=== PATIENT | male | born 1970 | race Caucasian/White ===

== ENCOUNTER 2018-09-21 17:19 | Inpatient (IN) | payer MEDICARE, OTHER ==
[~2018-09-21] VITALS: Ht 175.3 cm; Wt 111.6 kg
[2018-09-21 17:43] LABS: BASOPHILS % (AUTO) 0.5 % (0.0-2.0); HEMATOCRIT 37 % (39-51); HEMOGLOBIN 12.5 g/dL (13.5-17.5); LYMPHOCYTES # (AUTO) 3.1 /CMM (0.8-4.8); LYMPHOCYTES % (AUTO) 40.3 % (20.0-44.0); MEAN CORPUSCULAR HGB CONC 34 g/dl (31.0-36.0); MEAN CORPUSCULAR VOLUME 86 fL (80-96); MONOCYTES # (AUTO) 0.7 /CMM (0.1-1.30); MONOCYTES % (AUTO) 8.7 % (2.0-12.0); NEUTROPHILS # (AUTO) 3.4 /CMM (1.8-8.9); NEUTROPHILS % (AUTO) 45.5 % (43.0-81.0); PLATELET COUNT (AUTO) 288 /CMM (150-450); RED BLOOD CELL COUNT(AUTO) 4.27 MIL/uL (4.5-6.0); WHITE BLOOD COUNT (AUTO) 7.6 K/uL (4.3-11.0)
[2018-09-21] MEDS ORDERED: ONDANSETRON HCL/PF 4 MG/2 ML VIAL ONE (17:50)
[2018-09-21] MEDS ORDERED: OXYC-133 PO (17:51)
[2018-09-21] MEDS ORDERED: METF-440 PO (17:51)
[2018-09-21] MEDS ORDERED: METO25TA3 PO (17:51)
[2018-09-21] MEDS ORDERED: BUPR150T5 PO (17:51)
[2018-09-21] MEDS ORDERED: QUET400T PO (17:51)
--- NOTE | 2018-09-21 17:55 | NUR ---
PT BIBRA 89 C/O NON RADIATING MIDSTERNAL CHEST PAIN, 162 MG ASA AND 3 SPRAYS OF NITRO GIVEN IN THE FIELD. ALERT AND ORIENTED X 4, VERBALLY RESPONSIVE AND ABLE TO MAKE NEEDS KNOWN. ON ROOM AIR, BREATHING EVENLY AND UNLABORED. HOOKED ON THE MONITOR. KEPT COMFORTABLE. WILL CONTINUE TO MONITOR ACCORDINGLY.
[2018-09-21] MEDS ORDERED: ONDANSETRON HCL/PF - ER 4 MG/2 ML VIAL IV ONE (18:00)
[2018-09-21 18:07] LABS: CALCIUM, SERUM 9.2 mg/dL (8.5-10.1); CARBON DIOXIDE 29 mmol/L (21-32); CHLORIDE 102 mmol/L (98-107); CREATININE 0.9 mg/dL (0.6-1.3); GLUCOSE 109 mg/dL (74-106); SODIUM SERUM 137 mmol/L (136-145); UREA NITROGEN, BLOOD 18 mg/dL (7-18)
[2018-09-21] MEDS ORDERED: MORPHINE SULFATE INJ 2 MG/ML DISP.SYRIN IV ONE (18:30)
[2018-09-21] MEDS ORDERED: IV NS 0.9% 500 ML BAG IV ONE (18:30)
[2018-09-21] MEDS ORDERED: MORPHINE SULFATE INJ 4 MG/ML DISP.SYRIN ONE (18:37)
--- NOTE | 2018-09-21 18:45 | NUR ---
CALLED NURSING SUP REQUESTED TELE BED FOR THIS PATIENT
--- NOTE | 2018-09-21 19:14 | NUR ---
ENDORSED PATIENT TO FANNY NIGHT NURSE FOR MARTINEZ.
--- NOTE | 2018-09-21 19:31 | NUR ---
WAITING FOR A BED. PT IS BEING ADMITTED BY DEMETRIO CASTELLANOS [facility]
--- NOTE | 2018-09-21 19:41 | NUR ---
ADMIT TO ROOM 306-1 TELE DX CHEST PAIN ADMITTING DEMETRIO CASTELLANOS
--- NOTE | 2018-09-21 19:53 | NUR ---
CALLING REPORT TO TELE NURSE.
--- NOTE | 2018-09-21 19:57 | NUR ---
REPORT GIVEN TO ROSIE UNGER
[2018-09-21] MEDS ORDERED: MAG HYDROX/AL HYDROX/SIMETH 30 ML UDC PO PRN ×2 (20:00→20:15)
[2018-09-21] MEDS ORDERED: ONDANSETRON HCL/PF 4 MG/2 ML VIAL IVP PRN ×2 (20:00→20:15)
[2018-09-21] MEDS ORDERED: NITROGLYCERIN 0.4 MG/TAB BOTTLE SL PRN ×2 (20:00→20:15)
[2018-09-21] MEDS ORDERED: MORPHINE SULFATE INJ 2 MG/ML DISP.SYRIN IV PRN (20:00)
[2018-09-21] MEDS ORDERED: ACETAMINOPHEN 325 MG TABLET PO PRN ×2 (20:00→20:15)
[2018-09-21] MEDS ORDERED: IV NS 0.9% 500 ML IV PRN ×2 (20:00→20:15)
[2018-09-21] MEDS ORDERED: INSULIN REGULAR, HUMAN 100 UNIT/ML 3 ML VIAL SQ PRN ×2 (20:00→20:15)
[2018-09-21] MEDS ORDERED: DEXTROSE 50%-WATER 50 ML DISP.SYRIN IV PRN ×2 (20:00→20:15)
[2018-09-21] MEDS ORDERED: DOCUSATE SODIUM 100 MG CAPSULE PO PRN ×2 (20:00→20:15)
[2018-09-21 20:10] VITALS: BP 136/93
--- NOTE | 2018-09-21 20:10 | NUR ---
TRAIN CREW MEMBER NOTE RECEIVED REPORT FROM ROSIE ESCOBEDO IN EMERGENCY ROOM. PT ADMITTED TO TELE FLOOR TO CHEST PAIN A&O X4, ABLE TO MAKE NEEDS KNOWN. ALL CURRENT VS ARE STABLE WITH NO SIGNS OF SOB OR DISTRESS. PT. CURRENTLY ON O2 2L VIA NASAL CANNULA AND SATURATING AT 95%. IV ON THE LEFT AC #20 INTACT AND PATENT. ALL BELONGINGS SIGNED AND ACCOUNTED FOR. ALL CURRENT NEEDS MET. WILL CONT TO MONITOR.
[2018-09-21] MEDS ORDERED: MORPHINE SULFATE INJ 4 MG/ML DISP.SYRIN IV PRN (20:15)
[2018-09-21 20:21] VITALS: BP 136/93
--- NOTE | 2018-09-21 20:48 | NUR ---
LOCOMOTIVE LUBRICATING SYSTEMS CLERK NOTE PRN TYLENOL 650 MG GIVEN FOR MILD CHEST PAIN.
[2018-09-21] MEDS ORDERED: NORMAL SALINE FLUSH 10 ML SYR IV SCH (21:00)
[2018-09-21] MEDS: NORMAL SALINE FLUSH 10 ML SYR IV SCH (21:20)
[2018-09-21] MEDS: BLOOD SUGAR DIAGNOSTIC 1 EACH STRIP IN SCH (21:21)
[2018-09-21] MEDS ORDERED: SIMVASTATIN 20 MG TABLET PO SCH ×2 (22:00)
[2018-09-21] MEDS ORDERED: BLOOD SUGAR DIAGNOSTIC 1 EACH STRIP IN SCH (22:00)
[2018-09-21 23:26] VITALS: BP 136/93
[2018-09-21 23:54] VITALS: BP 113/72
[2018-09-22] VITALS (10 sets, daily range): BP systolic 93–145; BP diastolic 55–85
[2018-09-22 04:01] LABS: BASOPHILS % (AUTO) 0.5 % (0.0-2.0); EOSINOPHILS % (AUTO) 5.2 % (0.0-6.0); HEMATOCRIT 36 % (39-51); HEMOGLOBIN 12.1 g/dL (13.5-17.5); LYMPHOCYTES # (AUTO) 2.3 /CMM (0.8-4.8); LYMPHOCYTES % (AUTO) 36.2 % (20.0-44.0); MEAN CORPUSCULAR HGB CONC 34 g/dl (31.0-36.0); MEAN CORPUSCULAR VOLUME 86 fL (80-96); MONOCYTES # (AUTO) 0.5 /CMM (0.1-1.30); MONOCYTES % (AUTO) 8.1 % (2.0-12.0); NEUTROPHILS # (AUTO) 3.2 /CMM (1.8-8.9); PLATELET COUNT (AUTO) 252 /CMM (150-450); RED BLOOD CELL COUNT(AUTO) 4.16 MIL/uL (4.5-6.0); WHITE BLOOD COUNT (AUTO) 6.4 K/uL (4.3-11.0)
[2018-09-22 04:48] LABS: CALCIUM, SERUM 9.2 mg/dL (8.5-10.1); CREATININE 1.1 mg/dL (0.6-1.3); MAGNESIUM 1.7 mg/dL (1.8-2.4); PHOSPHORUS 4.2 mg/dL (2.5-4.9)
[2018-09-22 04:59] LABS: THYROID STIMULATING HORMONE 1.435 uIU/mL (0.358-3.74)
[2018-09-22] MEDS: NORMAL SALINE FLUSH 10 ML SYR IV SCH ×2 (05:12→13:27)
--- NOTE | 2018-09-22 06:10 | NUR ---
DIESEL PLANT OPERATOR NOTE PT REMAINS IN STABLE CONDITION, CURRENTLY RESTING IN BED. A&O X4 ABLE TO MAKE NEEDS KNOWN. NO SIGNS OF SOB OR DISTRESS. NO C/O CHEST PAIN. VITAL SIGNS ALL NORMAL. TELE MONITOR IS SINUS SHAKA 51. ALL CURRENT NEEDS MET. SAFETY MEASURES IN PLACE: BED LOCKED AND LOWEST POSITION, UPPER BED RAILS UP, AND CALL LIGHT WITHIN REACH. WILL ENDORSE TO ONCOMING SHIFT.
[2018-09-22] MEDS: BLOOD SUGAR DIAGNOSTIC 1 EACH STRIP IN SCH ×3 (07:05→17:30)
--- NOTE | 2018-09-22 07:10 | NUR ---
RN NOTES PATIENT ASLEEP, BUT EASILY AWAKEN, DENIES PAIN OR DISCOMFORT AT THIS TIME, KEPT COMFORTABLE, NEEDS ATTENDED, CALL LIGHT WITHIN REACH, WILL CONTINUE TO MONITOR.
[2018-09-22] MEDS: buPROPion SR 150 MG TABLET.ER PO SCH ×2 (08:09→16:38)
[2018-09-22] MEDS ORDERED: buPROPion SR 150 MG TABLET.ER PO SCH (09:00)
[2018-09-22] MEDS ORDERED: ASPIRIN 81 MG TAB.CHEW PO SCH ×2 (09:00)
[2018-09-22] MEDS ORDERED: METOPROLOL SUCCINATE 25 MG TAB.SR.24H PO SCH ×3 (09:00)
[2018-09-22] MEDS: oxyCODONE/APAP (5/325 MG) 1 UDTAB TABLET PO PRN ×2 (09:38→15:05)
[2018-09-22] MEDS: Magnesium 1GM/D5W 100ML PREMIX 100 ML IV SCH ×2 (11:30→13:27)
[2018-09-22] MEDS ORDERED: IOHEXOL-350 100 ML VIAL IV ONE (12:31)
[2018-09-22] MEDS ORDERED: CT SWABBABLE VALVE TRANS SET 1 EA INFUS.SET MC ONE (12:31)
[2018-09-22] MEDS ORDERED: IV NS 0.9% 250 ML IV ONE (12:31)
--- NOTE | 2018-09-22 12:47 | NUR ---
RN NOTES PATIENT BROUGHT TO RADIOLOGY FOR CTA. IN STABLE CONDITION. INSERTED RIGHT AC G18.
--- NOTE | 2018-09-22 13:00 | NUR ---
Pt s/p CTA, no distress noted throughout procedure, tolerated well, denies CP. No meds administered, sinus bradycardia 50's on monitor, no prn medications given. SBP in mid to low 90's, NTG SL x1 dose held; radiologist aware. Pt back to room; primary RN updated.
--- NOTE | 2018-09-22 13:07 | NUR ---
CESIA received a call from pt's ROSIE Bragg informing [facility] that pt. came from [facility] and would like to go back once medically cleared. CESIA informed ROSIE Bragg that [facility] will only take pt. back if he is suicidal and has a plan. ROSIE Bragg to ask pt. if he is suicidal and has a plan. CESIA faxed clinical referral packet to intake at [facility] . Addendum: 09/22/18 at 1422 by BRITTNEY CALLAWAY CESIA received a call from Magali in intake from [facility] Ax[facility] Mittal informing [facility]ESIA that pt. will have to be suicidal with a plan for them to accept the pt. CESIA contacted ROSIE Bragg who informed [facility]ESIA that pt. is suicidal but does not have a plan at this time.
--- NOTE | 2018-09-22 14:20 | NUR ---
RN NOTES ASKED PATIENT THE SECOND TIME IF HE HAS A SUICIDAL PLAN, PER PATIENT "I FEEL SUICIDAL, AND I WANT TO CUT MYSELF." SOCIAL SERVICE MADE AWARE. DR. JUAN MARTINEZ MADE AWARE. CT ANGIO RESULT STILL PENDING. NO ORDER AT THIS TIME, PATIENT IS CLOSELY MONITORED.
--- NOTE | 2018-09-22 14:23 | NUR ---
CESIA received a call back from ROSIE Bragg stating that pt. is now stating he is suicidal and has a plan to " cut himself." CESIA informed ROSIE Bragg that discharge note from the doctor needs to say, " Pt. is medically cleared and has suicidal ideation with a plan to cut himself" or So [facility] will not accept without this noted in the discharge summary by the doctor.
[2018-09-22] MEDS ORDERED: ASPI-1152 PO (15:29)
--- NOTE | 2018-09-22 15:30 | NUR ---
RN NOTES PATIENT IN NO DISTRESS, SAFETY PRECAUTION OBSERVED, PATIENT RESTING AT THIS TIME, CALM AND COOPERATIVE. NO PLANS OF HARMING SELF AT THIS TIME. WILL CONTINUE TO MONITOR.
--- NOTE | 2018-09-22 16:30 | NUR ---
RN NOTES PATIENT IN NAD, BREATHING EVEN AND UNLABORED, NO PLAN TO HARM HIMSELF AT THIS TIME, SAFETY PRECAUTION OBSERVED AT ALL TIMES, WILL CONTINUE TO MONITOR.
--- NOTE | 2018-09-22 17:20 | NUR ---
RN NOTES PATIENT CALM AND COOPERATIVE, SAFETY PRECAUTION OBSERVED AT ALL TIMES, WILL CONTINUE TO MONITOR.
--- NOTE | 2018-09-22 18:28 | NUR ---
RN NOTES PATIENT A/OX4, DISCHARGE INSTRUCTIONS PROVIDED AND VERBALIZED UNDERSTANDING, SKIN ASSESSMENT DONE AND SKIN DRY AND INTACT, NO CHANGES. PIV REMOVED ON LEFT AC AND RIGHT HAND, PATIENT STILL VERBALIZING FEELING SUICIDAL AND CUTTING HIMSELF. PATIENT IS MONITORED EVERY 15 MINUTES. REPORT GIVEN TO DUYEN AT [facility], AND FACILITY IS REQUESTING FOR UA DRUG SCREEN AND ALCOHOL LEVEL. DR. JUAN MARTINEZ MADE AWARE, ORDERED AND CARRIED OUT. PATIENT WILL BE GIVEN A TAXI VOUCHER ONCE ALL TESTS ARE COMPLETED. WILL CONTINUE TO CLOSELY MONITOR AND WILL ENDORSE TO RECORD LIBRARIAN.
--- NOTE | 2018-09-22 18:53 | NUR ---
RN NOTE CALL DUYEN AT [phone] FOR DRUG SCREEN RESULT AND ALCOHOL LEVEL RESULT.
--- NOTE | 2018-09-22 19:30 | NUR ---
RECEIVED PT SITTING ON A CHAIR IN THE ROOM . ANXIOUS AND WILLING TO GO. PENDING L;AB RESULTS WERE EXPLAINED TO THE PT ALONG WITH THE D/C PROCESS. ALERT. BREATHING EVENLY. NO SOB. NAD ,SKIN WARM AND DRY. WITH C/O SEVER LOWER BACK PAIN. NEEDS ATTENDED . WILL CONT TO MONITOR,
--- NOTE | 2018-09-22 19:50 | NUR ---
IV 24G WAS STARTED ON R HAND WITH GOOD BLOOD RETURN AND MORPHINE GIVEN ORDERED PERP T'S C/O CHEST DISCOMFORT AND SEVERE LOWER BACK PAIN. CALLED LAB TO F/C WITH DRUG TEST RESULT. URINE TEST STILL PENDING . PT MADE AWARE . WILL F/U.
--- NOTE | 2018-09-22 20:50 | NUR ---
CALLED [facility] AND SPOKE TO DUYEN REGARDING URINE AND BLOOD DRUG AND ALCOHOL TEST RESULTS. PER DUYEN THEY WILL ACCEPT THE PT. WILL CALL THE TAXI AND WILL INFORM THE PT WELL
--- NOTE | 2018-09-22 21:12 | NUR ---
PT WAS DISCHARGED TO [facility]. ALL BELONGINGS WERE PICKED UP BY THE PT. ALL PAPER WORKS HAVE ALREADY SIGNED AND GIVEN TO THE PT. IV LINE WAS D/C'D WITH NO COMPLICATIONS. TAXI VOUCHER WAS PROVIDED TO THE PT, ALL VSS.WITH NO C/O PAIN OR DISCOMFORT. DENIED CP. PT WAS ACCOMPANIED TO THE CAB WITH THE IRONER HAND IN STABLE CONDITION.
[2018-09-22] MEDS ORDERED: QUETIAPINE FUMARATE 100 MG TABLET PO SCH (22:00)
== END 2018-09-22 21:00 | DRG 198 ==
LOC: ER 17:29 → TELE 20:01 → MED 09-22 08:38
PROVIDERS: ADMIT Registered Nurse; ATTEND Nurse Practitioner Acute Care
DX: I25.10 Atherosclerotic heart disease of native coronary artery without angina pectoris (principal); R45.851 Suicidal ideations; E66.01 Morbid (severe) obesity due to excess calories; D64.9 Anemia, unspecified; E11.9 Type 2 diabetes mellitus without complications; F10.21 Alcohol dependence, in remission; F32.9 Major depressive disorder, single episode, unspecified; I10 Essential (primary) hypertension; Z95.5 Presence of coronary angioplasty implant and graft; Z98.1 Arthrodesis status; Z88.0 Allergy status to penicillin; Z68.36 Body mass index [BMI] 36.0-36.9, adult; Z79.84 Long term (current) use of oral hypoglycemic drugs; Z71.3 Dietary counseling and surveillance
CPT/HCPCS: 36415; 71045-TC; 75574; 80048-TC; 80061-TC; 80305; 82962-TC; 83735-TC; 84100-TC; 84443-TC; 84484-TC; 85025-TC; 85730-TC; 87081-TC; 93307-TC; A4216; A4606; G0378; G0480; J1815; J2270; J2405; J3475; J7040; J7050; Q9967; Z7610

== ENCOUNTER 2019-11-25 13:08 | Emergency (ER) | payer MEDICARE, OTHER ==
[~2019-11-25] VITALS: Ht 175.3 cm; Wt 108.9 kg
[~2019-11-25 13:08] MED LIST: ASPI-1152 PO; BUPR150T5 PO; METF-440 PO; METO25TA3 PO; OXYC-133 PO; QUET400T PO
[2019-11-25] MEDS ORDERED: ASPIRIN 81 MG TAB.CHEW PO ONE (14:30)
[2019-11-25] MEDS ORDERED: ASPIRIN 81 MG TAB.CHEW ONE (14:36)
[2019-11-25] MEDS ORDERED: HYDROCODONE/APAP 5/325MG 1 EACH TABLET ONE (14:38)
[2019-11-25 14:59] LABS: BASOPHILS # (AUTO) 0.1 /CMM (0.0-0.2); BASOPHILS % (AUTO) 0.7 % (0.0-2.0); EOSINOPHILS % (AUTO) 1.7 % (0.0-6.0); HEMATOCRIT 46 % (39-51); HEMOGLOBIN 14.9 g/dL (13.5-17.5); LYMPHOCYTES # (AUTO) 1.7 /CMM (0.8-4.8); LYMPHOCYTES % (AUTO) 15.7 % (20.0-44.0); MEAN CORPUSCULAR HGB CONC 32 g/dl (31.0-36.0); MEAN CORPUSCULAR VOLUME 87 fL (80-96); MONOCYTES # (AUTO) 0.8 /CMM (0.1-1.30); MONOCYTES % (AUTO) 7.4 % (2.0-12.0); NEUTROPHILS # (AUTO) 7.9 /CMM (1.8-8.9); NEUTROPHILS % (AUTO) 74.5 % (43.0-81.0); PLATELET COUNT (AUTO) 362 /CMM (150-450); WHITE BLOOD COUNT (AUTO) 10.6 K/uL (4.3-11.0)
[2019-11-25] MEDS ORDERED: HYDROCODONE/APAP 5/325MG 1 EACH TABLET PO ONE (15:00)
--- NOTE | 2019-11-25 15:00 | NUR ---
PATIENT DENIES CHEST PAIN, NO DISCOMFORT NOTED.
[2019-11-25 15:09] LABS: CALCIUM, SERUM 9.6 mg/dL (8.5-10.1); CARBON DIOXIDE 24 mmol/L (21-32); CHLORIDE 105 mmol/L (98-107); GLUCOSE 122 mg/dL (74-106); POTASSIUM 4.1 mmol/L (3.5-5.1); SODIUM SERUM 140 mmol/L (136-145); UREA NITROGEN, BLOOD 20 mg/dL (7-18)
[2019-11-25 15:15] LABS: ALANINE AMINOTRANSFERASE 28 U/L (12-78); ALBUMIN 3.9 g/dL (3.4-5.0); ALKALINE PHOSPHATASE 78 U/L (46-116); ASPARTATE AMINOTRANSFERASE 24 U/L (15-37); BILIRUBIN,DIRECT 0.1 mg/dL (0.0-0.2); BILIRUBIN,TOTAL 0.5 mg/dL (0.2-1.0); TOTAL PROTEIN, SERUM 7.9 g/dL (6.4-8.2)
--- NOTE | 2019-11-25 15:38 | NUR ---
[facility] INTAKE AND SPOKE WITH SCOT, PATIENT IS READY FOR DISCHARGE AND TO BE SENT BACK TO [facility], PER SCOT, SHE'LL CALL BACK.
--- NOTE | 2019-11-25 15:43 | NUR ---
SPOKE WITH HOWIE VELEZ MAKE UP OPERATOR HELPER, REPORT GIVEN.
--- NOTE | 2019-11-25 15:58 | NUR ---
CALLED [facility] FOR S TRANSPORT BACK TO [facility]. ETA: [phone]
--- NOTE | 2019-11-25 16:15 | NUR ---
CALLED [facility] FOR S TRANSPORT TO [facility]. ETA: [phone] MIN RUN # [id number]
--- NOTE | 2019-11-25 18:01 | NUR ---
patient provided food.
[2019-11-25 18:32] VITALS: BP 148/96
--- NOTE | 2019-11-25 18:32 | NUR ---
REPORT GIVEN TO EMT. PATIENT DENIES PAIN, NO DISTRESS NOTED. IV removed. Catheter intact and site benign. Pressure and 4x4 applied to site. No bleeding noted.Patient discharged to home in stable condition. Written and verbal after care instructions given. Patient verbalizes understanding of instruction.
== END 2019-11-25 18:32 ==
LOC: ER 13:08
DX: R07.89 Other chest pain (principal); G89.29 Other chronic pain; M54.9 Dorsalgia, unspecified; F41.9 Anxiety disorder, unspecified; I10 Essential (primary) hypertension; E11.9 Type 2 diabetes mellitus without complications; Z98.890 Other specified postprocedural states; Z88.0 Allergy status to penicillin; Z79.82 Long term (current) use of aspirin; Z79.899 Other long term (current) drug therapy; Z79.84 Long term (current) use of oral hypoglycemic drugs
CPT/HCPCS: 36415; 71045-TC; 80048-TC; 80076-TC; 84484-TC; 85025-TC